=== PATIENT | male | born 1955 | race Caucasian/White ===

== ENCOUNTER → 2016-08-19 | Outpatient (CLI) | payer BC ==
[~2016-08-19] MED LIST: ALPR-411 PO; BUPR-79 PO; CYAN1LOZ2 PO; MOME200A INH; OFLO0.3S4 OPL; PRED1SUS3 OPL; RESCUE INHALER INH; TERA1CAP63 PO; VENL150T33 PO; losartan PO
[2016-08-19 16:39] LABS: BASO % 0.5 %; BASO ABS # 0.03 K/uL (0-0.2); COMPLETE YES; EOS % 3.2 %; HEMATOCRIT 36.2 % (42-52); IG% 0.2 %; LYMPH % 46.1 %; LYMPH ABS # 2.85 K/uL (1.2-3.4); MEAN CELL VOLUME 93.5 fL (80-100); MEAN CORPUSCULAR HEMOGLOBIN 31.5 pg (25-34); MEAN CORPUSCULAR HGB CONC 33.7 g/dl (32-36); MONO % 9.2 %; NEUT % 40.8 %; PLATELET COUNT 220 K/uL (130-400); RED BLOOD COUNT 3.87 M/uL (4.7-6.1); WHITE BLOOD COUNT 6.18 K/uL (4.8-10.8)
[2016-08-19 17:17] LABS: ALB/GLOB RATIO 1.5 (0.9-2); ALT/SGPT 20 U/L (12-78); AST/SGOT 11 U/L (15-37); BLOOD UREA NITROGEN 11 mg/dl (7-18); BUN/CREATININE RATIO 9.1 (10-20); CALCIUM 8.5 mg/dl (8.5-10.1); CARBON DIOXIDE 30 mmol/L (21-32); CHLORIDE 105 mmol/L (98-107); GLUCOSE 85 mg/dl (70-99); POTASSIUM 3.3 mmol/L (3.5-5.1); SODIUM 142 mmol/L (136-145)
[2016-08-19 17:18] LABS: ALKALINE PHOSPHATASE 49 U/L (45-117)
== END | disposition home or self-care (01) ==
LOC: C.LAB1850 15:53
PROVIDERS: ATTEND Internal Medicine
DX: Z00.00 Encounter for general adult medical examination without abnormal findings (principal); Z11.59 Encounter for screening for other viral diseases; D64.9 Anemia, unspecified; F43.21 Adjustment disorder with depressed mood

== ENCOUNTER → 2017-05-06 | Outpatient (CLI) | payer BC ==
--- NOTE | 2017-05-09 14:54 | PULMONARY FUNCTION TEST ---
Spirometry is normal. Repeat study done following bronchodilator showed mild, but not significant improvement in function. Flow volume loops were normal.
== END | disposition home or self-care (01) ==
LOC: C.RC 13:35
PROVIDERS: ATTEND Internal Medicine
DX: J45.909 Unspecified asthma, uncomplicated (principal)

== ENCOUNTER → 2017-07-13 | Outpatient (CLI) | payer OTHER ==
--- NOTE | 2017-07-13 14:54 | DIAGNOSTIC IMAGING REPORT ---
LEFT SHOULDER 3 VIEWS CLINICAL HISTORY: Left upper extremity paresthesias. FINDINGS: 3 views of the left shoulder are obtained. No prior studies are available for comparison at the time of dictation. The skeletal structures are osteopenic. No fracture or dislocation is seen. Minimal productive degenerative change is seen at the acromioclavicular joint. The glenohumeral articulation is preserved. The overlying soft tissues are within normal limits. The imaged left upper lobe lung parenchyma appears clear. IMPRESSION: No acute bony abnormality is seen in the left shoulder. Electronically signed by: Rod Linn M.D. 07/13/2017 2:53 PM Dictated Date/Time: 07/13/2017 2:51 PM
--- NOTE | 2017-07-13 21:02 | DIAGNOSTIC IMAGING REPORT ---
CERVICAL SPINE 5 VIEWS CLINICAL HISTORY: Left upper extremity paresthesia. FINDINGS: AP, lateral, bilateral oblique, and odontoid views of the cervical spine are obtained. No prior studies are available for comparison at the time of dictation. The skeletal structures are osteopenic. There is no radiographic evidence of fracture or subluxation. Vertebral body height and alignment are maintained throughout the cervical spine. There is straightening of the cervical lordosis with mild reversal centered at C4-C5. The atlantodental articulation appears maintained noting productive degenerative change. The odontoid process and lateral masses are intact as seen on the open-mouth view. The spinolaminar line is preserved. Anterior osteophytes are seen in the lower cervical region. There is moderate disc space narrowing seen at C5-C6 and C6-C7. Tiny posterior disc osteophyte complexes at these levels may contribute to mild acquired compromise of the central canal. Multilevel neural foraminal stenosis is seen bilaterally, greatest in the lower cervical region at C5-C6 and C6-C7. The prevertebral soft tissues are within normal limits. The visualized apical lung parenchyma appears clear. IMPRESSION: 1. No acute bony abnormality is seen involving the cervical spine. 2. Osteopenia and multilevel cervical spondylosis as above. Dictated: 07/13/2017 2:53 PM Transcribed: 07/13/2017 9:02 PM [email or web address] Electronically signed by: Rod Linn M.D. 07/14/2017 3:59 PM Dictated Date/Time: 07/13/2017 2:53 PM
== END | disposition home or self-care (01) ==
LOC: C.RAD1850 14:31
PROVIDERS: ATTEND Internal Medicine
DX: R20.2 Paresthesia of skin (principal); M85.88 Other specified disorders of bone density and structure, other site; M47.812 Spondylosis without myelopathy or radiculopathy, cervical region

== ENCOUNTER → 2018-01-24 | Outpatient (CLI) | payer OTHER ==
[~2018-01-24] MED LIST changes: +EFF75 PO; +HYDR12.55 PO; +KETO0.5S22 OPR; +OFLO0.3S OP; -OFLO0.3S4 OPL
[2018-01-24 16:06] LABS: BASO % 0.5 %; BASO ABS # 0.03 K/uL (0-0.2); EOS % 3.2 %; EOS ABS # 0.19 K/uL (0-0.5); HEMATOCRIT 35.3 % (42-52); HEMOGLOBIN 11.9 g/dL (14.0-18.0); IG# 0.02 K/uL (0.00-0.02); LYMPH % 37.5 %; LYMPH ABS # 2.25 K/uL (1.2-3.4); MEAN CELL VOLUME 93.6 fL (80-100); MEAN CORPUSCULAR HEMOGLOBIN 31.6 pg (25-34); MEAN CORPUSCULAR HGB CONC 33.7 g/dl (32-36); MEAN PLATELET VOLUME 9.8 fL (7.4-10.4); MONO % 9.5 %; MONO ABS # 0.57 K/uL (0.11-0.59); NEUT ABS # 2.94 K/uL (1.4-6.5); PLATELET COUNT 252 K/uL (130-400); RED CELL DISTRIBUTION WIDTH CV 13.5 % (11.5-14.5); RED CELL DISTRIBUTION WIDTH SD 45.9 fL (36.4-46.3)
[2018-01-24 16:13] LABS: ALBUMIN 3.7 gm/dl (3.4-5.0); ALKALINE PHOSPHATASE 52 U/L (45-117); ALT/SGPT 23 U/L (12-78); AST/SGOT 13 U/L (15-37); BLOOD UREA NITROGEN 25 mg/dl (7-18); CALCIUM 8.5 mg/dl (8.5-10.1); CARBON DIOXIDE 27 mmol/L (21-32); CREATININE 1.86 mg/dl (0.60-1.40); GLUCOSE 118 mg/dl (70-99); POTASSIUM 3.1 mmol/L (3.5-5.1); SODIUM 137 mmol/L (136-145); TOTAL PROTEIN 6.5 gm/dl (6.4-8.2)
== END | disposition home or self-care (01) ==
LOC: C.LAB1850 14:21
PROVIDERS: ATTEND Internal Medicine
DX: D72.819 Decreased white blood cell count, unspecified (principal); I10 Essential (primary) hypertension